=== PATIENT | female | born 1950 | race Caucasian/White ===

== ENCOUNTER 2018-10-08 13:00 | Day surgery (SDC) | payer MEDICARE, OTHER ==
[~2018-10-08 13:00] MED LIST: FENTANYL 100MCG/2ML SOL ONE; MIDAZOLAM 2 MG/2 ML SOL ONE
[2018-10-08] MEDS ORDERED: ACETAZOLAMIDE 250 MG PO ONE (13:06)
[2018-10-08] MEDS: PHENYLEPHRINE HCL 10% OPHTHAL SOL ONE ×3 (13:17→13:25)
[2018-10-08] MEDS: TROPICAMIDE 1% OPHTH SOL ONE ×3 (13:17→13:26)
[2018-10-08] MEDS: CYCLOPENTOLATE 1% SOL ONE ×3 (13:17→13:26)
[2018-10-08] MEDS: KETOROLAC/HOME 0.5% SOL RIGHTEYE ONE ×3 (13:17→13:26)
[2018-10-08] MEDS: MOXIFLOXACIN-HOME SOL RIGHTEYE ONE ×2 (13:17→13:21)
[2018-10-08] MEDS: TETRACAINE HCL 0.5 % OPHTH 1 DROP SOL ONE ×2 (13:26→14:18)
[2018-10-08] MEDS ORDERED: BSS W/ 0.5 MG P.F. EPI 1 BOTTLE ONE (14:09)
[2018-10-08] MEDS ORDERED: POVIDONE IODINE 5% SOL ONE (14:10)
[2018-10-08] MEDS ORDERED: LIDOCAINE HCL 2% MPF 10 ML SOL ONE (14:10)
[2018-10-08] MEDS ORDERED: ACETAZOLAMIDE 500 MG CER PO ONE (14:35)
[2018-10-08 14:48] VITALS: BP 138/85; PULSE 77; RESP 20; TEMP 97; O2SAT 94
== END 2018-10-08 15:07 | disposition home or self-care (01) | DRG 125 ==
LOC: SURG 13:00
PROVIDERS: ATTEND Ophthalmology
DX: H25.89 Other age-related cataract (principal); E11.9 Type 2 diabetes mellitus without complications
CPT/HCPCS: J2250; J3010; A9270-GY

== ENCOUNTER 2018-10-22 09:51 | Day surgery (SDC) | payer OTHER, MEDICARE | END 2018-10-22 12:03 | disposition home or self-care (01) | LOC: SURG 09:51 ==